=== PATIENT | female | born 1965 | race Asian ===

== ENCOUNTER 2017-09-26 08:07 | Day surgery (SDC) | payer BC, OTHER ==
[2017-09-26] MEDS ORDERED: PROPOFOL 40 ML (10:42)
[2017-09-26] MEDS ORDERED: PROPOFOL 20 ML (11:36)
[2017-09-26] MEDS ORDERED: EPHEDrine SULFATE 50 MG/5 ML SYG (11:37)
== END 2017-09-26 13:51 | disposition home or self-care (01) ==
LOC: GIL 08:07
DX: Z12.11 Encounter for screening for malignant neoplasm of colon (principal); K21.0 Gastro-esophageal reflux disease with esophagitis; D12.3 Benign neoplasm of transverse colon; I85.00 Esophageal varices without bleeding; K29.70 Gastritis, unspecified, without bleeding; M06.9 Rheumatoid arthritis, unspecified
CPT/HCPCS: 43239; 88305; 88312